=== PATIENT | female | born 1955 | race Caucasian/White ===

== ENCOUNTER 2017-10-07 10:44 | Observation (INO) ==
[2017-10-07] MEDS ORDERED: 0.9 % Sodium Chloride 1,000 ML IVC ONE (11:12)
[2017-10-07] MEDS ORDERED: Ondansetron 4 MG/2 ML VIAL IVP ONE (11:12)
[2017-10-07] MEDS ORDERED: Hyoscyamine 0.5 MG/ML MLS IVP ONE (11:13)
[2017-10-07 11:42] LABS: Bilirubin,Urine Negative (Negative); Blood,Urine Trace (Negative); Clarity,Urine Cloudy (Clear); Color,Urine Yellow (Yellow); Glucose,Urine (UA) Normal (Normal); Ketones,Urine Negative (Negative); Leukocyte Esterase,Urine Negative (Negative); Nitrite,Urine Negative (Negative); PH,Urine 5.5 pH Units (5.0-8.0); Protein,Urine Trace mg/dL (Neg-Trace); Specific Gravity,Urine > 1.030 (1.010-1.025); Urobilinogen,Urine Normal (Normal)
[2017-10-07 11:44] LABS: Bacteria,Urine None Seen per hpf (None-Few); Hyaline Casts,Urine None Seen per lpf (None-Few); Squamous Epithelial Cell,Urine Many per lpf (None-Few)
[2017-10-07 11:46] LABS: RBC,Urine 0-3 per hpf (0-3)
[2017-10-07 12:14] LABS: Basophils % 0.3 %; Eosinophils # 0.2 K/mcL (0.0-0.6); Eosinophils % 2.5 %; Hematocrit 45.8 % (35.3-44.9); Hemoglobin 15.1 g/dL (11.5-15.4); Immature Granulocytes % 0.2 % (0-4); Lymphocytes # 1.7 K/mcL (0.6-4.6); Lymphocytes % 27.7 %; Mean Corpuscular Hemoglobin 28.4 pg (28.0-33.3); Mean Corpuscular Volume 86.3 fL (83.0-100.0); Mean Platelet Volume 10.3 fL (9.4-12.4); Monocytes # 0.4 K/mcL (0.0-1.3); Monocytes % 7.3 %; Neutrophils # 3.7 K/mcL (1.6-8.9); Platelet Count 224 K/mcL (140-400); Red Blood Count 5.31 M/mcL (3.82-4.97)
[2017-10-07 12:27] LABS: Prothrombin Time 11.5 Seconds (9.4-12.1)
[2017-10-07 12:30] LABS: Activated Partial Thrombo Time 30.1 Seconds (26.0-36.0)
[2017-10-07 12:36] LABS: Troponin I < 0.03 ng/mL (< 0.04)
[2017-10-07 12:40] LABS: Alanine Aminotransferase 16 Units/L (7-52); Albumin 3.9 g/dL (3.5-5.7); Albumin/Globulin Ratio 1.4 (1.1-2.2); Alkaline Phosphatase 77 Units/L (34-104); Aspartate Amino Transferase 15 Units/L (13-39); BUN/Creatinine Ratio 17 (6-26); Bilirubin,Direct 0.1 mg/dL (0.0-0.2); Bilirubin,Indirect 0.5 mg/dL (0.0-1.2); Bilirubin,Total 0.6 mg/dL (0.3-1.0); Blood Urea Nitrogen 19 mg/dL (8-23); Calcium 9.1 mg/dL (8.6-10.3); Carbon Dioxide 28 mEq/L (23-29); Chloride 104 mEq/L (98-107); Globulin 2.8 g/dL (2.4-3.5); Glucose 101 mg/dL (70-105); Lipase 26 Units/L (11-82); Osmolality,Calculated 290 (280-300); Potassium 3.8 mEq/L (3.5-5.1); Sodium 139 mEq/L (136-145); Total Protein 6.7 g/dL (6.4-8.9); eGFR For African Americans 59 (> 60); eGFR For Non-African Americans 48 (> 60)
--- NOTE | 2017-10-07 12:40 | Emergency Department Note ---
Disposition Clinical Impression: Biliary colic Abdominal pain Qualifiers: Abdominal location: right upper quadrant Qualified Code(s): R10.11 - Right upper quadrant pain Disposition: Admitted As Inpatient Condition: Good Referrals: Maryam Sotelo CNP [Primary Care Provider] - Forms: ED Satisfaction Letter, Work/School Release Time of Disposition: 15:00 Abdominal Pain HPI - General Chief Complaint: ED Abdominal Pain Stated Complaint: abd pain Time Seen by Provider: 10/07/17 10:47 Source: patient Mode of arrival: ambulatory Limitations: no limitations Nursing Notes Reviewed: Yes Vital Signs Reviewed: Yes - History of Present Illness HPI Narrative: Patient presents emergency room for evaluation of right upper quadrant abdominal pain and discomfort. Vital signs reviewed and are stable. Patient denied any fevers or chills chest pain shortness of breath headache vision changes nausea vomiting or diarrhea up until the events here yesterday. Patient has a history of biliary colic. She has had this happen several times is scheduled to have her gallbladder removed by Dr. Canales on October 17. Patient is here similar attack. She has been worked up evaluated and seen Pt Subjective Complaint: abdominal pain Onset (ago): hour(s) Consistency: constant Location: RUQ Pain Severity: moderate Pain Scale: 9 Quality: cramping, stabbing Radiation: RUQ Migration to: no migration Improves with: nothing Worsens with: nothing Context: history of similar episodes Associated symptoms: Reports: denies other symptoms Treatments prior to arrival: none - Related Data Home Medications Medication Instructions Recorded Confirmed Acetaminophen [Tylenol Arthritis] 1,300 mg PO DAILY 10/07/17 10/07/17 Albuterol Neb [Proventil Neb] 2.5 mg IH DAILY PRN 10/07/17 10/07/17 Aspirin Enteric Coated [Aspirin EC] 81 mg PO DAILY 10/07/17 10/07/17 Cetirizine HCl [All Day Allergy] 10 mg PO DAILY 10/07/17 10/07/17 Cholecalciferol (D-3) [Vitamin D] 1,000 unit PO DAILY 10/07/17 10/07/17 Fluticasone/Salmeterol [Advair 1 puff IH DAILY PRN 10/07/17 10/07/17 100-50 Diskus] Lansoprazole [Prevacid] 30 mg PO DAILY 10/07/17 10/07/17 Losartan/Hydrochlorothiazide 1 tab PO Q48H 10/07/17 10/07/17 [Losartan-Hctz 50-12.5 mg Tab] Allergies Allergy/AdvReac Type Severity Reaction Status Date / Time Penicillins Allergy See Verified 10/07/17 13:26 Comments All systems ED: reviewed and negative except as stated. Review of Systems: As Per HPI Constitutional: Denies: fever, chills ENT ED: Denies: ear pain, throat pain, dental pain Cardiovascular: Denies: chest pain, palpitations, dyspnea on exertion, orthopnea Respiratory: Denies: cough, dyspnea, wheezes Gastrointestinal: Reports: abdominal pain, nausea. Denies: vomiting, diarrhea, constipation Genitourinary: Denies: urgency, dysuria, frequency Musculoskeletal: Denies: back pain, neck pain Integumentary: Denies: rash Neurological: Denies: headache Endocrine: Denies: fatigue Abdominal Pain PMH - Past Medical History Medical history: Reports: asthma, hypertension, other Female Surgical History: Reports: other - Social History Smoking status: Former smoker Alcohol use: Reports: none Drug use: Reports: none Physical Exam - General Limitations: no limitations General appearance: alert, in no apparent distress - Head Head exam: atraumatic, normocephalic, normal inspection - Eye Eye exam: Present: normal appearance, PERRL, EOMI - Neck Neck exam: Present: normal inspection, full ROM, trachea midline - Chest Chest inspection: Present: normal inspection, symmetric chest wall rise - Respiratory Respiratory exam: Present: normal lung sounds bilaterally - Cardiovascular Cardiovascular exam: Present: regular rate, normal rhythm, normal heart sounds - Abdominal Exam Abdominal exam: Present: soft, tenderness, normal bowel sounds. Absent: distention, guarding, rebound, rigidity, Velez's sign, Rovsing's sign, tenderness at McBurney's Point - Extremities Exam Extremities exam: Present: normal inspection, full ROM, normal capillary refill. Absent: tenderness - Back Exam Back exam: Present: normal inspection, full ROM - Neurological Exam Neurological exam: Present: alert, oriented X3, CN II-XII intact, normal gait - Skin Skin exam: Present: warm, dry, intact, normal color Course Course Narrative: Patient presents emergency room for evaluation of right upper quadrant abdominal pain and discomfort. Vital signs reviewed and are stable. Patient denied any fevers or chills chest pain shortness of breath headache vision changes nausea vomiting or diarrhea up until the events here yesterday. Patient has a history of biliary colic. She has had this happen several times is scheduled to have her gallbladder removed by Dr. Canales on October 17. Patient presented here today with an identical attack. She has no history of cardiac disease but she does have hypertension and diabetes. Unknown if she has hyperlipidemia. Patient will have labs including chest x-ray EKG CBC chemistry liver function testing and lipase. Patient will gallbladder ultrasound completing considering her physical exam is isolated the right upper quadrant of the abdomen. Patient is otherwise currently resting comfortably in the bed she does not have any active nausea vomiting here. Fluids nausea medication and anti-spasmodic medication will begin by IV infusion at this point and disposition will be determined. Patient will have stabilization and evaluation. Physical exam is otherwise unremarkable. Lungs are clear heart is regular abdomen is soft but she does have tenderness in the right upper quadrant and epigastrium. There is no guarding no rigidity and no peritoneal- like symptoms. She does not have a positive Velez sign based on evaluation. Ultrasound is still pending pain will be controlled and disposition to be determined. Patient is otherwise clinically stable with no other acute findings on physical exam warranting further imaging modalit - Reevaluation(s) Reevaluation #1: Patient has what appears to be chronic cholecystitis with gallbladder sludge chronic wall thickening. Labs are otherwise unremarkable in the patient's symptoms are slightly better. Discusses findings with the surgeon Dr. Canales who is the patient's out side provider. He recommended that if the patient had no resolution symptoms that she could be admitted for symptomatically controlled possible add-on procedure tomorrow or follow-up in the outpatient setting for her scheduled appointment on the . We will discuss this with the patient after medications have for work. Time: 13:14 Reevaluation #2: Patient's pain is been moderately controlled but has not gone away. Patient is concerned about going home considering this is the most persistent symptom she is ever had. The on-call surgeon Dr. Canales be contacted again for admission process. Discussed the patient's presentation length patient will be admitted to their service. No other concerns or issues Time: 14:45 Vital Signs Temperature 97.7 F 10/07/17 10:45 Pulse Rate 80 10/07/17 10:45 Respiratory Rate 16 10/07/17 10:45 Blood Pressure 169/103 10/07/17 10:45 O2 Sat by Pulse Oximetry 97 10/07/17 10:45 Temperature 97.7 F 10/07/17 11:27 Pulse Rate 72 10/07/17 13:01 Respiratory Rate 17 10/07/17 13:01 Blood Pressure 141/96 10/07/17 13:01 O2 Sat by Pulse Oximetry 98 10/07/17 13:01 Oxygen Delivery Oxygen Delivery Room Air Abdominal Pain - MDM Narrative Medical decision making narrative: Biliary colic, chronic cholecystitis - Medical Records Medical records reviewed: Yes I reviewed the patient's medical records. - Lab Data Lab results reviewed: Yes I reviewed the patient's lab results. Result diagrams: 10/07/17 11:12 10/07/17 11:12 Lab Results 10/07/17 10/07/17 10/07/17 Range/Units 11:12 11:12 11:12 WBC 6.0 (4.3-11.1) K/mcL RBC 5.31 H (3.82-4.97) M/mcL Hgb 15.1 (11.5-15.4) g/dL Hct 45.8 H (35.3-44.9) % MCV 86.3 (83.0-100.0) fL MCH 28.4 (28.0-33.3) pg MCHC 33.0 (31.6-35.5) g/dL RDW 14.0 (11.5-14.5) % Plt Count 224 (140-400) K/mcL MPV 10.3 (9.4-12.4) fL Immature Gran % 0.2 (0-4) % Seg Neutrophils % 62.0 % Lymphocytes % 27.7 % Monocytes % 7.3 % Eosinophils % 2.5 % Basophils % 0.3 % Neutrophils # 3.7 (1.6-8.9) K/mcL Lymphocytes # 1.7 (0.6-4.6) K/mcL Monocytes # 0.4 (0.0-1.3) K/mcL Eosinophils # 0.2 (0.0-0.6) K/mcL Basophils # 0.0 (0.0-0.2) K/mcL PT 11.5 (9.4-12.1) Seconds INR 1.0 APTT 30.1 (26.0-36.0) Seconds Sodium 139 (136-145) mEq/L Potassium 3.8 (3.5-5.1) mEq/L Chloride 104 (98-107) mEq/L Carbon Dioxide 28 (23-29) mEq/L BUN 19 (8-23) mg/dL Creatinine 1.14 (0.60-1.20) mg/dL Est GFR ( Amer) 59 L (> 60) Est GFR (Non-Af Amer) 48 L (> 60) BUN/Creatinine Ratio 17 (6-26) Glucose 101 (70-105) mg/dL Calculated Osmolality 290 (280-300) Calcium 9.1 (8.6-10.3) mg/dL Total Bilirubin 0.6 (0.3-1.0) mg/dL Direct Bilirubin 0.1 (0.0-0.2) mg/dL Indirect Bilirubin 0.5 (0.0-1.2) mg/dL AST 15 (13-39) Units/L ALT 16 (7-52) Units/L Alkaline Phosphatase 77 (34-104) Units/L Troponin I < 0.03 (< 0.04) ng/mL Serum Total Protein 6.7 (6.4-8.9) g/dL Albumin 3.9 (3.5-5.7) g/dL Globulin 2.8 (2.4-3.5) g/dL Albumin/Globulin Ratio 1.4 (1.1-2.2) Lipase 26 (11-82) Units/L Urine Color (Yellow) Urine Clarity (Clear) Urine pH (5.0-8.0) pH Units Ur Specific [place] (1.010-1.025) Urine Protein (Neg-Trace) mg/dL Urine Glucose (UA) (Normal) mg/dL Urine Ketones (Negative) mg/dL Urine Blood (Negative) Urine Nitrite (Negative) Urine Bilirubin (Negative) Urine Urobilinogen (Normal) mg/dL Ur Leukocyte Esterase (Negative) Urine Microscopic RBC (0-3) per hpf Urine Microscopic WBC (0-3) per hpf Ur Squamous Epith Cells (None-Few) per lpf Urine Bacteria (None-Few) per hpf Hyaline Casts (None-Few) per lpf Ur Culture Indicated? (NO) 10/07/17 Range/Units 11:25 WBC (4.3-11.1) K/mcL RBC (3.82-4.97) M/mcL Hgb (11.5-15.4) g/dL Hct (35.3-44.9) % MCV (83.0-100.0) fL MCH (28.0-33.3) pg MCHC (31.6-35.5) g/dL RDW (11.5-14.5) % Plt Count (140-400) K/mcL MPV (9.4-12.4) fL Immature Gran % (0-4) % Seg Neutrophils % % Lymphocytes % % Monocytes % % Eosinophils % % Basophils % % Neutrophils # (1.6-8.9) K/mcL Lymphocytes # (0.6-4.6) K/mcL Monocytes # (0.0-1.3) K/mcL Eosinophils # (0.0-0.6) K/mcL Basophils # (0.0-0.2) K/mcL PT (9.4-12.1) Seconds INR APTT (26.0-36.0) Seconds Sodium (136-145) mEq/L Potassium (3.5-5.1) mEq/L Chloride (98-107) mEq/L Carbon Dioxide (23-29) mEq/L BUN (8-23) mg/dL Creatinine (0.60-1.20) mg/dL Est GFR ( Amer) (> 60) Est GFR (Non-Af Amer) (> 60) BUN/Creatinine Ratio (6-26) Glucose (70-105) mg/dL Calculated Osmolality (280-300) Calcium (8.6-10.3) mg/dL Total Bilirubin (0.3-1.0) mg/dL Direct Bilirubin (0.0-0.2) mg/dL Indirect Bilirubin (0.0-1.2) mg/dL AST (13-39) Units/L ALT (7-52) Units/L Alkaline Phosphatase (34-104) Units/L Troponin I (< 0.04) ng/mL Serum Total Protein (6.4-8.9) g/dL Albumin (3.5-5.7) g/dL Globulin (2.4-3.5) g/dL Albumin/Globulin Ratio (1.1-2.2) Lipase (11-82) Units/L Urine Color Yellow (Yellow) Urine Clarity Cloudy A (Clear) Urine pH 5.5 (5.0-8.0) pH Units Ur Specific [place] > 1.030 H (1.010-1.025) Urine Protein Trace (Neg-Trace) mg/dL Urine Glucose (UA) Normal (Normal) mg/dL Urine Ketones Negative (Negative) mg/dL Urine Blood Trace H (Negative) Urine Nitrite Negative (Negative) Urine Bilirubin Negative (Negative) Urine Urobilinogen Normal (Normal) mg/dL Ur Leukocyte Esterase Negative (Negative) Urine Microscopic RBC 0-3 (0-3) per hpf Urine Microscopic WBC 5-15 H (0-3) per hpf Ur Squamous Epith Cells Many H (None-Few) per lpf Urine Bacteria None Seen (None-Few) per hpf Hyaline Casts None Seen (None-Few) per lpf Ur Culture Indicated? NO (NO) - Radiology Data Radiology results reviewed: Yes I reviewed the patient's radiology results. Ultrasound shows gallbladder sludge and chronic cholecystitis no other signs of common bile duct dilation - EKG Data EKG attestation: Yes I reviewed and interpreted this EKG. EKG results narrative: EKG shows sinus rhythm. Ventricular rate of 70. OR interval 153. QRS duration of 86. QTC of 414. Homer appears to be slightly leftward deviated. Patient has no acute signs of ST segment elevation or abnormality. No acute signs of WPW or Brugada syndrome. EKG is also concerning for left ventricular hypertrophy. All this information was reviewed and compared to previous EKG from 09/02/17 that has no acute morphology changes at this time
[2017-10-07] MEDS ORDERED: *HR* FentaNYL (PF) 100 MCG/2 ML VIAL IVP ONE (14:45)
[2017-10-07] MEDS ORDERED: Naloxone 0.4 MG/ML INJ IVP PRN (15:16)
[2017-10-07] MEDS ORDERED: Ondansetron 4 MG/2 ML VIAL IVP PRN (15:16)
[2017-10-07] MEDS ORDERED: Acetaminophen 325 MG TABLET PO PRN (15:26)
[2017-10-07] MEDS ORDERED: Morphine Oral CONC 5 MG/0.25 ML ORAL.SYG PO PRN (15:26)
[2017-10-07] MEDS ORDERED: OXYCODONE Oral CONC 10 MG/0.5 ML ORAL.SYG SL PRN (15:26)
--- NOTE | 2017-10-07 16:06 | General Surg History&Physical ---
Date of Encounter: 10/07/17 Time of Encounter: 15:45 Assessment and Plan (1) Biliary colic Current Visit: Yes Status: Acute The assessment and plan as outlined above was discussed with the patient and/or family members who expressed understanding and agreement. All questions were answered. Clear liquids today NPO after midnight IV fluids Supportive care IS every 1 hour while awake PPI therapy daily Ambulate hallways Plan for Robotic assisted cholecystectomy with IOC with Dr. Canales in the next 24 hours for recurrent biliary colic (2) Hypertension Current Visit: Yes Status: Chronic The assessment and plan as outlined above was discussed with the patient and/or family members who expressed understanding and agreement. All questions were answered. Continue home medication regimen Qualifiers: Hypertension type: essential hypertension Qualified Code(s): I10 - Essential (primary) hypertension (3) Asthma Current Visit: Yes Status: Chronic The assessment and plan as outlined above was discussed with the patient and/or family members who expressed understanding and agreement. All questions were answered. Continue home medication regimen Qualifiers: Asthma severity: unspecified severity Asthma persistence: unspecified Asthma complication type: unspecified Qualified Code(s): J45.909 - Unspecified asthma, uncomplicated (4) DVT prophylaxis Current Visit: Yes Status: Acute The assessment and plan as outlined above was discussed with the patient and/or family members who expressed understanding and agreement. All questions were answered. EPCDs to bilateral lower extremities for DVT prophylaxis Ambulate hallways TID History of Present Illness Chief complaint: Epigastric pain HPI: Ms. Guerra is a 61 year old female who presented to the ED today with complaints of sudden onset of epigastric pain at 6am this morning. She states that the pain is sharp and stabbing and has been constant since 6am when she woke up from sleep. She states that the pain does radiate into her back. She did experience pain similar to this on of this year and she did present to the ED at that time for evaluation. She states that she has been watching her diet and has not had any recurrence of the pain until this morning. She admits to nausea without vomiting. She has no appetite. She denies any fevers/chills. She admits to feeling bloated. She did have a colonoscopy on 10/06/[address] Canales which was uncomplicated. She has not had a bowel movement since her colonoscopy. Denies any flatus. Denies any difficulty with urination. Past Med Surg Social Fam HX - Past Medical History Source: patient, old records reviewed Medical history: asthma, hypertension, other (Allergies) Additional medical history: allergies - Past Surgical History Surgical History: other (right knee meniscus repair, sinus surgery and septoplasty, colonoscopy 10/06/17) Additional surgical history: right knee meniscal repair-unsure, tonsillectomy- 1956, tubal ligation-1982 - Social History Smoking Status: Former smoker Smokeless Tobacco Status: No Alcohol use: none Drug use: none Current living situation: Home - Independent Activity Level: Independent ambulation - Family History Father Living Status: Hx Family GI Disorders: Yes (Ulcerative colitis) Mother Living Status: Hx Family Cardiac Disorders: Yes (HTN) Hx Family Neurologic Disorders: Yes (Dementia) Medications and Allergies Acetaminophen [Tylenol Arthritis] 1,300 mg PO DAILY 10/07/17 [History] Albuterol Neb [Proventil Neb] 2.5 mg IH DAILY PRN 10/07/17 [History] Aspirin Enteric Coated [Aspirin EC] 81 mg PO DAILY 10/07/17 [History] Cetirizine HCl [All Day Allergy] 10 mg PO DAILY 10/07/17 [History] Cholecalciferol (D-3) [Vitamin D] 1,000 unit PO DAILY 10/07/17 [History] Fluticasone/Salmeterol [Advair 100-50 Diskus] 1 puff IH DAILY PRN 10/07/17 [ History] Lansoprazole [Prevacid] 30 mg PO DAILY 10/07/17 [History] Losartan/Hydrochlorothiazide [Losartan-Hctz 50-12.5 mg Tab] 1 tab PO Q48H [History] 3 Allergy/AdvReac Type Severity Reaction Status Date / Time Penicillins Allergy See Verified 10/07/17 13:26 Comments Review of Systems All systems PM: reviewed and no additional remarkable complaints except as stated (in the HPI) All systems PM: The remainder of the systems were reviewed and are negative General Surgery Exam Initial Vital Signs Temp Pulse Resp BP Pulse Ox 97.7 F 80 16 169/103 97 10/07/17 10:45 10/07/17 10:45 10/07/17 10:45 10/07/17 10:45 10/07/17 10:45 - General physical appearance well developed, well nourished, moderate distress, moderate pain - Eyes normal ocular movement - ENT normal mucosa, atraumatic, normocephalic - Neck trachea midline - Respiratory normal respiratory effort, clear to auscultation - Cardiovascular Cardiovascular exam: Present: RRR - Abdomen Abdomen general surgery: Present: bowel sounds present, soft, tender Abdominal Tenderness: Present: epigastic, RUQ - Integumentary Integumentary general surgery: Present: warm and dry - Neurologic Present: CN 2-12 grossly intact - Psychiatric Psychiatric general surgery: Present: A&Ox3 Results - Labs 10/07/17 11:12 10/07/17 11:12 Abnormal lab results RBC 5.31 M/mcL (3.82-4.97) H 10/07/17 11:12 Hct 45.8 % (35.3-44.9) H 10/07/17 11:12 Est GFR ( Amer) 59 (> 60) L 10/07/17 11:12 Est GFR (Non-Af Amer) 48 (> 60) L 10/07/17 11:12 Urine Clarity Cloudy (Clear) A 10/07/17 11:25 Ur Specific [place] > 1.030 (1.010-1.025) H 10/07/17 11:25 Urine Blood Trace (Negative) H 10/07/17 11:25 Urine Microscopic WBC 5-15 per hpf (0-3) H 10/07/17 11:25 Ur Squamous Epith Cells Many per lpf (None-Few) H 10/07/17 11:25 All other labs normal. - Imaging US - abdomen: report reviewed Additional studies: Gallbladder Ultrasound 10/07/17 11:13 IMPRESSION: Sludge within the gallbladder. No convincing gallstones are detected. Gallbladder wall thickening which may represent chronic cholecystitis. D/ / 10/07/2017 12:25:07 Thom Gonzalez MD / Samira Tyler Interpreting Provider: Thom Gonzalez MD Chest X-Ray 10/07/17 11:14 IMPRESSION: No acute cardiopulmonary disease. D/ / Eb Simms MD / Eb Simms MD Interpreting Provider: Eb Simms MD - Attending Attestation For this encounter, I have reviewed the PRODUCT ARCHITECT or PA documentation, treatment plan, and medical decision making; and I have had face to face time with this patient.
[2017-10-07] MEDS ORDERED: Albuterol 2.5 MG/3 ML NEBULIZER IH PRN (16:14)
[2017-10-07] MEDS ORDERED: Losartan/HCTZ 50-12.5 TABLET PO SCH (16:15)
[2017-10-07] MEDS: 0.9 % Sodium Chloride 1,000 ML IVC SCH (17:20)
[2017-10-08] MEDS: 0.9 % Sodium Chloride 1,000 ML IVC SCH ×2 (07:20→18:10)
[2017-10-08] MEDS ORDERED: Pantoprazole 40 MG VIAL IVP SCH (09:00)
[2017-10-08] MEDS ORDERED: Aspirin Enteric Coated 81 MG Tablet PO SCH (09:00)
[2017-10-08] MEDS ORDERED: Loratadine 10 MG TABLET PO SCH (09:00)
[2017-10-08] MEDS ORDERED: Budesonide/Formoterol 80/4.5 MDI IH SCH (10:00)
--- NOTE | 2017-10-08 15:24 | Anesthesia Evaluation PreOp ---
Date of Encounter: 10/08/17 Time of Encounter: 17:30 - Past History Planned Operation: Robotic lap capo Cardiac History: HTN Pulmonary History: Former smoker, Asthma, Other (allergies) Other Medical History: Denies Any Significant HX Anesthesia History: No Prior Anesthetic Complications Alcohol Use: none Drug use: none Medications and Allergies Acetaminophen [Tylenol Arthritis] 1,300 mg PO DAILY 10/07/17 [History] Albuterol Neb [Proventil Neb] 2.5 mg IH DAILY PRN 10/07/17 [History] Aspirin Enteric Coated [Aspirin EC] 81 mg PO DAILY 10/07/17 [History] Cetirizine HCl [All Day Allergy] 10 mg PO DAILY 10/07/17 [History] Cholecalciferol (D-3) [Vitamin D] 1,000 unit PO DAILY 10/07/17 [History] Fluticasone/Salmeterol [Advair 100-50 Diskus] 1 puff IH DAILY PRN 10/07/17 [ History] Lansoprazole [Prevacid] 30 mg PO DAILY 10/07/17 [History] Losartan/Hydrochlorothiazide [Losartan-Hctz 50-12.5 mg Tab] 1 tab PO Q48H [History] 3 Allergy/AdvReac Type Severity Reaction Status Date / Time Penicillins Allergy See Verified 10/07/17 13:26 Comments - Meds/Allergy Pre-op Review Medications Reviewed: Yes Allergies Reviewed: Yes Beta Blockers on Current Med List: No Anesthesia Results - Labs 10/07/17 11:12 10/07/17 11:12 - Imaging EKG: report reviewed, image reviewed (SINUS RHYTHM MARKED LEFT AXIS DEVIATION MINIMAL VOLTAGE CRITERIA FOR LVH, CONSIDER NORMAL VARIANT POSSIBLE ANTERIOR MYOCARDIAL INFARCTION, OF INDETERMINATE AGE) Anesthesia Exam Last Vital Signs Temp 98.8 F 10/08/17 14:45 Pulse 72 10/08/17 14:45 Resp 16 10/08/17 14:45 BP 112/75 10/08/17 14:45 Pulse Ox 97 10/08/17 14:45 Weight: 104 kg - HEENT Pupil (Motor): Pupils equal, EOMI Mallampati: III Teeth: Poor dentition Oral Opening: Greater than 3 - WIC SITE COORDINATOR LOC: Oriented - Cardiac Rhythm: Regular Murmur: None - Pulmonary Breath Sounds: bilateral Clear Respiratory Effort: Symmetrical Anesthesia Assess/Plan ASA Score: 2 Modified Tushar Scale for Level of Consciousness: Cooperative, oriented, and tranquil Anesthetic Plan: General Monitoring Plan: Standard Monitors Recovery Plan: PACU
[2017-10-08] MEDS ORDERED: Lidocaine -MPF 2% 2 ML VIAL ONE (16:09)
[2017-10-08] MEDS ORDERED: *HR* FentaNYL (PF) 100 MCG/2 ML VIAL ONE ×2 (16:09→18:00)
[2017-10-08] MEDS ORDERED: *HR* Midazolam HCl 2 MG/2 ML VIAL ONE (16:09)
[2017-10-08] MEDS ORDERED: *HR* Propofol 200 MG/20 ML VIAL IVP ONE ×2 (16:09→17:50)
[2017-10-08] MEDS ORDERED: CefOXitin 2,000 MG VIAL ONE (17:41)
[2017-10-08] MEDS ORDERED: cefOXitin 2,000 MG in Water for inj. (sterile) 20 ML 20 ML IVPB ONE (17:41)
[2017-10-08] MEDS ORDERED: *HR* Rocuronium Bromide 50 MG/5 ML VIAL ONE (17:49)
[2017-10-08] MEDS ORDERED: Neostigmine Methylsulfate 3 MG/3 ML SYRINGE ONE (17:53)
[2017-10-08] MEDS ORDERED: Ketorolac 30 MG/ML VIAL ONE (18:07)
[2017-10-08] MEDS ORDERED: Dexamethasone 4 MG/ML VIAL ONE (18:08)
[2017-10-08] MEDS ORDERED: Ondansetron 4 MG/2 ML VIAL ONE (18:08)
--- NOTE | 2017-10-08 18:41 | Operative Note ---
Date of procedure: 10/08/17 Pre-op diagnosis: Acute cholecystitis Post-op diagnosis: same Procedure: Robotic cholecystectomy with ICG cholangiogram Anesthesia: MARIAN Surgeon: Franck Canales Was there an assistant professor of english present: No Estimated blood loss (cc): 10 Specimen: gb Condition: stable Disposition: same day Procedure in Detail: After informed consent the patient was taken to the operating room. After adequate sedation anesthesia the abdomen was prepped and draped. A proper timeout was performed. Two towel clamps to place the umbilicus. A varies needle was placed at the umbilicus and a pneumo-peritoneum was created. A 12 mm incision was made at the umbilicus and a port was placed under direct visualization. A 5 mm incision was created in the left upper quadrant, followed by one in the right upper quadrant. There were 2 individual 5 mm cannulas then placed in the RUQ. An alligator clamp was then placed on the gallbladder was retracted anteriorly and cephalad. The infundibulum of the gallbladder was identified and the cystic duct was skeletonized. Once the structures were identified the cystic duct was clipped twice proximally and once distally. A cholangiogram was performed and found to have flow into the hepatic radicals and duodenum. Cystic duct was then transected. The gallbladder was then resected off the liver surface. The ICG was again utilized to identify any aberrant ductwork in the liver bed, and there was none noted. Once the gallbladder was fully resected from the liver surface, the liver was gently irrigated and suctioned dry. We ensured hemostasis prior to removing the gallbladder through the umbilical port. Pneumoperitoneum was then evacuated. The 12 mm cannula site was closed with a 0-Vicryl suture in figure- of-eight fashion. The port sites were injected with half percent Marcaine 30 mL. The skin was closed with 4-0 Vicryl suture and Dermabond. All instrument counts and needle counts were correct at the end of the case. The pt was taken to recovery in stable condition.
[2017-10-08] MEDS ORDERED: Acetaminophen IV 1,000 MG/100 ML INFUS..BTL IVPB ONE (18:46)
[2017-10-08] MEDS ORDERED: *HR* OxyCODONE Immed Rel 5 MG TABLET PO PRN (18:46)
[2017-10-08] MEDS ORDERED: *HR* Promethazine 25 MG/ML VIAL IVP PRN (18:46)
--- NOTE | 2017-10-08 19:13 | Anesthesia Evaluation Post Op ---
Date of Encounter: 10/08/17 Time of Encounter: 19:12 - Vital Signs Vital Signs: Last Vital Signs Temp 97.7 F 10/08/17 18:42 Pulse 69 10/08/17 19:02 Resp 20 10/08/17 19:02 BP 153/80 10/08/17 19:02 Pulse Ox 95 10/08/17 19:02 - Lungs Lungs: Clear Ascult./Percussion - Airway Airway: Non-obstructed - Cardiovascular Regular Rate - Mental Status Mental Status: Alert & Oriented, Answers Appropriately - Pain Pain Scale: 3 - Nausea Vomiting Nausea Vomiting: Not Present - Hydration Hydration: Ice chips - Discharge PostOp Status: Transfer Patient to floor
[2017-10-08] MEDS ORDERED: Ondansetron 4 MG/2 ML VIAL IVP PRN (19:19)
[2017-10-08] MEDS ORDERED: *HR* Morphine Soln 10 MG/5 ML UDC PO PRN (19:19)
[2017-10-08] MEDS ORDERED: Acetaminophen 325 MG TABLET PO PRN (19:19)
[2017-10-08] MEDS ORDERED: 0.9 % Sodium Chloride 1,000 ML IVC SCH (19:19)
[2017-10-08] MEDS ORDERED: OXYCODONE Oral CONC 10 MG/0.5 ML ORAL.SYG SL PRN (19:19)
[2017-10-08] MEDS ORDERED: Albuterol 2.5 MG/3 ML NEBULIZER IH PRN (19:19)
[2017-10-08] MEDS ORDERED: Naloxone 0.4 MG/ML INJ IVP PRN (19:19)
[2017-10-09 06:44] VITALS: BP 124/81
--- NOTE | 2017-10-09 08:35 | Discharge Summary ---
Orders not resulted at time of discharge: Pending orders 10/08/17 18:29 Surgical Pathology [PTH] Routine Date of Encounter: 10/09/17 Time of Encounter: 08:37 - Discharge Diagnosis (1) Biliary colic Priority: Primary Status: Acute (2) Hypertension Priority: Secondary Status: Chronic Qualifiers: Hypertension type: essential hypertension Qualified Code(s): I10 - Essential (primary) hypertension (3) Asthma Priority: Secondary Status: Chronic Qualifiers: Asthma severity: unspecified severity Asthma persistence: unspecified Asthma complication type: unspecified Qualified Code(s): J45.909 - Unspecified asthma, uncomplicated (4) DVT prophylaxis Priority: Secondary Status: Acute General Surgery Exam Initial Vital Signs Temp Pulse Resp BP Pulse Ox 97.7 F 80 16 169/103 97 10/07/17 10:45 10/07/17 10:45 10/07/17 10:45 10/07/17 10:45 10/07/17 10:45 Vital Signs Temp Pulse Resp BP Pulse Ox 10/09/17 06:40 98.1 F 83 16 124/81 94 10/09/17 04:20 98.5 F 86 16 114/78 94 10/08/17 23:54 98.4 F 89 16 121/85 95 10/08/17 22:17 98.3 F 96 16 121/84 94 10/08/17 21:10 98.8 F 89 16 128/79 96 10/08/17 20:37 97.9 F 78 16 125/77 94 10/08/17 19:58 97.7 F 73 16 134/73 97 10/08/17 19:29 97.5 F L 70 18 143/79 97 10/08/17 19:12 97.9 F 72 16 150/81 97 10/08/17 19:02 69 20 153/80 95 10/08/17 18:52 73 20 146/83 95 10/08/17 18:42 97.7 F 77 20 126/80 94 10/08/17 14:45 98.8 F 72 16 112/75 97 10/08/17 11:28 98.1 F 69 16 95/68 95 10/08/17 10:28 12 94 Intake and Output 10/08/17 10/09/17 10/09/17 23:59 07:59 15:59 Intake Total 1200 / 1200 300 / 300 Output Total 360 / 360 550 / 550 Balance 840 / 840 -250 / -250 Intake: IV Fluids 1200 / 1200 300 / 300 0.9 % Sodium Chloride 1,000 ML 300 / 300 @ 75 mls/hr IVC .[id number] [facility] Rx #:[id number] Ofirmev 1,000 mg/100 ml 1,000 100 / 100 mg In 100 ml @ 400 mls/hr IVPB ONCE ONE Rx#:[id number] Oral 0 / 0 Output: Urine 350 / 350 550 / 550 Estimated Blood Loss 10 / 10 Other: # Bowel Movements 0 VITAL SIGNS: Reviewed. See [facility] GENERAL: In no apparent distress. HEENT: Normocephalic, atraumatic, pupils are equal and reactive, extraocular motions intact, oropharynx is pink and moist, there is no neck adenopathy or JVD noted. CHEST/RESPIRATORY: The thorax is free from signs of trauma. Lung sounds: clear to auscultation, normal respiratory effort CARDIAC: Regular rate and rhythm. Normal S1 and S2, without murmurs, gallops, or rubs. VASCULAR: No Edema. 2+ peripheral pulses. ABDOMEN: soft, expected postoperative tenderness, hypoactive BS INCISION: Surgical incision is clean, dry, and intact. There are no signs of cellulitis or infection noted. MUSCULOSKELETAL: Good range of motion of all major joints. Extremities without clubbing, cyanosis or edema. NEUROLOGIC EXAM: Alert and oriented x 3. Speech normal. Follows commands. PSYCHIATRIC: Mood normal. SKIN: No rash or lesions. - Hospital Course Hospital course: Ms. Guerra is a 61 year old female who presented on 10/07/2017 to the emergency department with complaints of sudden onset of worsening epigastric pain. She was known to Dr. Canales and plans were originally scheduled for a cholecystectomy later in the month. Given her recurrence and increase of symptoms she was taken to the operating room on 10/08/2017 where she underwent an uncomplicated robotic assisted laparoscopic cholecystectomy. She is ambulating and voiding without difficulty, tolerating a diet without nausea or vomiting, afebrile, and vital signs are stable. Her abdominal discomfort is well- controlled. We will begin discharge planning to home with a follow-up in the office in approximately 2 weeks. - Time Spent with Patient Total time spent providing and/or coordinating discharge services: - Discharge Medications Prescriptions: OxyCODONE/APAP 5/325 [Percocet 5/325 MG] 1 each PO Q6HR PRN 7 Days #28 tablet PRN Reason: Pain Docusate Sodium [Colace] 100 mg PO BID #30 capsule Ibuprofen 800 mg PO Q8H PRN #60 tablet PRN Reason: Mild Pain Home Medications: Acetaminophen [Tylenol Arthritis] 1,300 mg PO DAILY 10/07/17 [History] Albuterol Neb [Proventil Neb] 2.5 mg IH DAILY PRN 10/07/17 [History] Aspirin Enteric Coated [Aspirin EC] 81 mg PO DAILY 10/07/17 [History] Cetirizine HCl [All Day Allergy] 10 mg PO DAILY 10/07/17 [History] Cholecalciferol (D-3) [Vitamin D] 1,000 unit PO DAILY 10/07/17 [History] Fluticasone/Salmeterol [Advair 100-50 Diskus] 1 puff IH DAILY PRN 10/07/17 [ History] Lansoprazole [Prevacid] 30 mg PO DAILY 10/07/17 [History] Losartan/Hydrochlorothiazide [Losartan-Hctz 50-12.5 mg Tab] 1 tab PO Q48H [History] Docusate Sodium [Colace] 100 mg PO BID #30 capsule 10/09/17 [Rx] Ibuprofen 800 mg PO Q8H PRN #60 tablet 10/09/17 [Rx] OxyCODONE/APAP 5/325 [Percocet 5/325 MG] 1 each PO Q6HR PRN 7 Days #28 tablet [Rx] Allergies/Adverse Reactions: 3 Allergy/AdvReac Type Severity Reaction Status Date / Time Penicillins Allergy See Verified 10/07/17 13:26 Comments Date of admission: 10/07/17 15:01 Primary care physician: Maryam Sotelo CNP Discharging clinician: Mony Garcia Anticipated date of discharge: 10/09/17 Labs on day of discharge: Labs from last 24 hours 10/08/17 11:21 POC Glucose 99 - Patient Status Disposition: Home, Self-Care Condition: Good Functional capacity at discharge: independent ambulation Overall status at discharge: patient is progressing back to baseline - Discharge Instructions Instructions: Laparoscopic Cholecystectomy (DC) Follow Up With: Chandni Botello CNP [Advanced Practice Nurse] - 10/23/17 10:15 am Additional Instructions: General Surgical Discharge Instructions 1. No pushing, pulling, or lifting greater than 15 lbs for 2-4 weeks (depending upon procedure). 2. You may shower beginning today, but no tub baths, soaking, or swimming for 2 weeks. 3. You may resume driving when you are off narcotics and are safe to react in a car. 4. Take ibuprofen every 8 hours for discomfort. If this does not relieve discomfort, you may take the as needed Percocet. Take narcotics as directed. Do not take more narcotics then directed and do not share your narcotics with any other person. Do not drink alcohol while on narcotics. 5. Take stool softeners (Colace) or a water based laxative (Miralax) while taking narcotics. You may hold for loose stools. 6. Report any fevers greater than 100.5F, increase abdominal discomfort, drainage that looks like pus, increased redness or pain at the surgical site, or any vomiting. 7. Report any pain in the calves, shortness of breath, or rapid heartbeat. 8. Follow-up in the office as directed. 9. If you were prescribed antibiotics, do not stop them without talking to your provider. - Diet and Activity Activity: increase activity as tolerated Diet: advance to your usual diet
--- NOTE | 2017-10-09 08:37 | Electrocardiograph Report ---
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
[2017-10-09] MEDS ORDERED: Pantoprazole 40 MG VIAL IVP SCH (09:00)
[2017-10-09] MEDS ORDERED: Aspirin Enteric Coated 81 MG Tablet PO SCH (09:00)
[2017-10-09] MEDS ORDERED: Loratadine 10 MG TABLET PO SCH (09:00)
[2017-10-09] MEDS ORDERED: Budesonide/Formoterol 80/4.5 MDI IH SCH (10:00)
[2017-10-09] MEDS ORDERED: Losartan/HCTZ 50-12.5 TABLET PO SCH (16:15)
== END 2017-10-09 10:29 | disposition home or self-care (01) ==
LOC: 3ANU 10:44 → EMEROO 10:44 → 3ANU 15:57
PROVIDERS: ADMIT Surgery; ATTEND Surgery